=== PATIENT | male | born 1970 | race Caucasian/White ===

== ENCOUNTER → 2017-01-21 | Outpatient (CLI) | payer OTHER ==
[~2017-01-21] MED LIST: DIAZEPAM5 MG PO; DIVALPROEX SOD500 M1 PO; EPZICOM1 TABLET PO; INTELENCE200 MG PO; LACTULOSE10 GM/151 PO; MONTELUKAST SOD10 MG PO; OXYCODONE HCL5 MG PO
== END | disposition home or self-care (01) ==
DX: R26.2 Difficulty in walking, not elsewhere classified (principal); M25.551 Pain in right hip; M25.651 Stiffness of right hip, not elsewhere classified; M62.81 Muscle weakness (generalized)
CPT/HCPCS: 97110 GP; 97150 GO; 97161 GP; 97165 GO

== ENCOUNTER 2017-02-04 05:44 | Inpatient (IN) | payer OTHER ==
[~2017-02-04] VITALS: Ht 165.1 cm; Wt 53.8 kg
[~2017-02-04 05:44] MED LIST changes: +BUSPAR7.5 MG PO; +COMBIVENT RESPIM4 GM IH; +DEPAKOTE ER500 MG PO; +HYDROCODON-ACE1 EAC8 PO; +MARINOL5 MG PO; +NEURONTIN300 MG PO; +PROVENTIL HFA6.7 GM IH; +SINGULAIR10 MG PO; +STRIBILD TABLE1 EACH PO; +TRAZODONE HCL50 MG PO
[2017-02-04 07:16] VITALS: BP 116/82
[2017-02-04] MEDS ORDERED: VISTARIL25 MG PO (09:37)
[2017-02-04] MEDS ORDERED: COUMADIN2.5 MG PO (09:37)
[2017-02-04 11:48] LABS: HEMATOCRIT 42.6 % (38.0-50.0); MCV 100.5 FL (86-99)
[2017-02-04 12:25] VITALS: BP 113/73
[2017-02-04 12:53] LABS: PROTHROMBIN TIME 10.6 (9.2-11.2)
[2017-02-04 15:56] VITALS: BP 144/83
[2017-02-04 20:21] VITALS: BP 128/88
[2017-02-05 00:20] VITALS: BP 138/84
[2017-02-05 04:15] VITALS: BP 134/82
[2017-02-05 06:03] LABS: HEMATOCRIT 38.7 % (38.0-50.0); MCV 98.5 FL (86-99)
[2017-02-05 06:10] LABS: INTER. NORMALIZED RATIO 1.1; PROTHROMBIN TIME 11.4 (9.2-11.2)
[2017-02-05 06:17] LABS: ANION GAP 9 MEQ/L (2-14); CHLORIDE 106 MEQ/L (99-109); GFR ESTIMATE (CALCULATED) > 59 mL/min/; GLUCOSE 124 mg/dL (70-99); POTASSIUM 4.1 MEQ/L (3.7-5.4); SAMPLE HEMOLYSIS CHECK 0; SAMPLE ICTERIC CHECK 0; SAMPLE LIPEMIA CHECK 0; SODIUM 136 MEQ/L (136-147); UREA NITROGEN (BUN) 7 mg/dL (9-23)
[2017-02-05 08:00] VITALS: BP 124/80
[2017-02-05 12:13] VITALS: BP 111/71
[2017-02-05 16:05] VITALS: BP 110/70
[2017-02-05 20:01] VITALS: BP 114/76
[2017-02-06 00:30] VITALS: BP 110/71
[2017-02-06 04:30] VITALS: BP 116/70
[2017-02-06 05:10] LABS: INTER. NORMALIZED RATIO 3.5; PROTHROMBIN TIME 36.8 (9.2-11.2)
[2017-02-06 08:02] VITALS: BP 108/69
[2017-02-06] MEDS ORDERED: OXYCONTIN10 MG PO (11:38)
[2017-02-06] MEDS ORDERED: PERCOCET 10/1 TABLET PO (11:38)
[2017-02-06] MEDS ORDERED: COUMADIN1 MG PO ×2 (11:41→11:42)
[2017-02-06] MEDS ORDERED: HYDROXYZINE PAM25 MG PO (11:46)
[2017-02-06 12:26] VITALS: BP 117/78
[2017-02-06 15:27] VITALS: BP 109/70
== END 2017-02-06 16:05 | disposition home health service (06) | DRG 470 ==
LOC: 2SOUTH → 3WEST 05:44 → 2SOUTH 08:55 → 3WEST 12:05 → 2SOUTH 12:41 → 3WEST 02-06 16:05
PROVIDERS: Orthopaedic Surgery
PROC: 0SR902A Replacement of Right Hip Joint with Metal on Polyethylene Synthetic Substitute, Uncemented, Open Approach (ICD-10-PCS; principal; 2017-02-04)
DX: M16.11 Unilateral primary osteoarthritis, right hip (principal); G40.909 Epilepsy, unspecified, not intractable, without status epilepticus; Z21 Asymptomatic human immunodeficiency virus [HIV] infection status; G89.29 Other chronic pain; F41.9 Anxiety disorder, unspecified; F32.9 Major depressive disorder, single episode, unspecified; J45.909 Unspecified asthma, uncomplicated; M81.0 Age-related osteoporosis without current pathological fracture; F17.200 Nicotine dependence, unspecified, uncomplicated; Z79.891 Long term (current) use of opiate analgesic; Z88.0 Allergy status to penicillin
CPT/HCPCS: 80048; 85014; 85018; 85610; 86850; 86900; 86901; 97530 GP; 99202; J0690; J1170; J2250; J7050; J7120; Q0167

== ENCOUNTER 2018-03-31 12:21 | Inpatient (IN) | payer OTHER ==
[~2018-03-31] VITALS: Ht 165.1 cm; Wt 57.3 kg
[~2018-03-31 12:21] MED LIST changes: +COUMADIN1 MG PO; +COUMADIN2.5 MG PO; +HYDROXYZINE PAM25 MG PO; +OXYCONTIN10 MG PO; +PERCOCET 10/1 TABLET PO; +VISTARIL25 MG PO
[2018-03-31 12:50] LABS: BASOPHIL (%) 0.6 % (0-1); BASOPHIL COUNT 0.1 K/uL (0-0.1); EOSINOPHIL (%) 0.9 % (0-5); EOSINOPHIL COUNT 0.1 K/uL (0-0.3); HEMATOCRIT 41.6 % (38.0-50.0); IMMATURE GRANULOCYTE (%) 0.5 % (0.0-0.7); LYMPHOCYTE COUNT 2.2 K/uL (1.0-2.8); MCH 34.7 PG (29.0-34.0); MCHC 33.7 G/DL (30.0-36.0); MONOCYTE (%) 6.3 % (3-12); MONOCYTE COUNT 0.8 K/uL (0-0.8); NEUTROPHIL (%) 73.7 % (45-76); NEUTROPHIL COUNT 8.8 K/uL (1.8-6.4); PLATELET COUNT 239 K/uL (156-360); RBC DIS.WIDTH-CV 13.2 % (11.8-14.6); RBC DIS.WIDTH-SD 50.8 % (39-53); RED BLOOD COUNT 4.04 M/uL (4.00-5.50)
[2018-03-31 12:57] LABS: INTER. NORMALIZED RATIO 0.9
[2018-03-31 12:59] LABS: ALBUMIN 3.6 g/dL (3.2-4.8); CHLORIDE 111 mEq/L (99-109); POTASSIUM 4.6 mEq/L (3.7-5.4); SODIUM 139 mEq/L (136-147)
[2018-03-31 12:59] LABS: PTT 27.8 SEC (25-37)
[2018-03-31 13:02] LABS: GLUCOSE 122 mg/dL (70-99); TOTAL PROTEIN 5.9 g/dL (6.4-8.3)
[2018-03-31 13:04] LABS: TOTAL BILIRUBIN 0.2 mg/dL (0.0-1.0)
[2018-03-31 13:05] LABS: ALKALINE PHOSPHATASE 278 IU/L (3-129); CREATININE 1.4 mg/dL (0.6-1.3); GFR ESTIMATE (CALCULATED) 58 mL/min/ (58.99-99999)
[2018-03-31 13:06] LABS: UREA NITROGEN (BUN) 13 mg/dL (9-23)
[2018-03-31 13:07] LABS: AST (GOT) 15 IU/L (2-34)
[2018-03-31 13:08] LABS: ALT (GPT) 11 IU/L (3-49)
[2018-03-31] MEDS ORDERED: BACTRIM,SEPT1 TABLET PO (16:48)
[2018-03-31] MEDS ORDERED: DRONABINOL10 MG PO (16:49)
[2018-03-31] MEDS ORDERED: NEURONTIN600 MG PO ×2 (16:50)
[2018-03-31] MEDS ORDERED: ALEVE220 MG PO (16:51)
[2018-03-31] MEDS ORDERED: VITAMIN B122500 MCG PO (16:51)
[2018-03-31] MEDS ORDERED: CLOTRIMAZOLE15 GM TP (16:54)
[2018-03-31 20:00] VITALS: BP 110/74
[2018-03-31 20:10] VITALS: BP 110/74
[2018-03-31 23:23] VITALS: BP 115/69
[2018-04-01 03:59] VITALS: BP 100/66
[2018-04-01 08:43] VITALS: BP 102/56
[2018-04-01 16:06] VITALS: BP 111/62
[2018-04-01 19:22] VITALS: BP 119/70
[2018-04-02 00:46] VITALS: BP 120/73
[2018-04-02 04:25] VITALS: BP 111/63
[2018-04-02 05:58] LABS: HEMATOCRIT 34.1 % (38.0-50.0); HEMOGLOBIN 11.2 G/DL (12.5-16.6)
[2018-04-02 07:22] VITALS: BP 101/64
[2018-04-02 07:49] LABS: CHLORIDE 108 MEQ/L (99-109); CREATININE 1.2 MG/DL (0.6-1.3); GFR ESTIMATE (CALCULATED) > 59 mL/min/ (58.99-99999); GLUCOSE 150 mg/dL (70-99); POTASSIUM 3.7 MEQ/L (3.7-5.4); SODIUM 134 MEQ/L (136-147); UREA NITROGEN (BUN) 10 mg/dL (9-23)
[2018-04-02 11:13] VITALS: BP 108/69
[2018-04-02 16:05] VITALS: BP 110/72
[2018-04-02 23:11] VITALS: BP 117/67
[2018-04-03 06:36] LABS: HEMATOCRIT 29.1 % (38.0-50.0); HEMOGLOBIN 9.5 G/DL (12.5-16.6); MCV 104.3 FL (86-99)
[2018-04-03 07:39] VITALS: BP 102/57
[2018-04-03 16:01] VITALS: BP 112/69
[2018-04-04 00:07] VITALS: BP 98/53
[2018-04-04 06:28] LABS: HEMATOCRIT 28.9 % (38.0-50.0); HEMOGLOBIN 9.4 G/DL (12.5-16.6); MCH 33.9 PG (29.0-34.0); MCHC 32.5 G/DL (30.0-36.0); MCV 104.3 FL (86-99); PLATELET COUNT 226 K/uL (156-360); RBC DIS.WIDTH-CV 13.1 % (11.8-14.6); RBC DIS.WIDTH-SD 50.5 % (39-53); WHITE BLOOD COUNT 5.6 K/uL (4.1-10.2)
[2018-04-04 06:33] LABS: RED BLOOD COUNT 2.77 M/uL (4.00-5.50)
[2018-04-04 08:05] VITALS: BP 115/69
[2018-04-04] MEDS ORDERED: ENDOCET 5-3251 EACH PO (13:05)
[2018-04-04 15:17] VITALS: BP 100/59
== END 2018-04-04 16:45 | disposition home health service (06) | DRG 492 ==
LOC: EME 12:21 → 3EAST 17:03 → EDOF 17:03 → ENRESERV 17:21 → 3EAST 19:18
PROVIDERS: Emergency Medicine; Family Medicine; Internal Medicine; Orthopaedic Surgery
PROC: 0QSG06Z Reposition Right Tibia with Intramedullary Internal Fixation Device, Open Approach (ICD-10-PCS; principal; 2018-04-01)
DX: S89.001A Unspecified physeal fracture of upper end of right tibia, initial encounter for closed fracture (principal); S89.201A Unspecified physeal fracture of upper end of right fibula, initial encounter for closed fracture; W01.0XXA Fall on same level from slipping, tripping and stumbling without subsequent striking against object, initial encounter; B20 Human immunodeficiency virus [HIV] disease; R64 Cachexia; Z68.21 Body mass index [BMI] 21.0-21.9, adult; G40.909 Epilepsy, unspecified, not intractable, without status epilepticus; M47.816 Spondylosis without myelopathy or radiculopathy, lumbar region; M48.061 Spinal stenosis, lumbar region without neurogenic claudication; G62.9 Polyneuropathy, unspecified; G89.29 Other chronic pain; J45.909 Unspecified asthma, uncomplicated; M06.9 Rheumatoid arthritis, unspecified; M79.7 Fibromyalgia; M81.8 Other osteoporosis without current pathological fracture; F41.9 Anxiety disorder, unspecified; F17.210 Nicotine dependence, cigarettes, uncomplicated; Z96.641 Presence of right artificial hip joint
CPT/HCPCS: 72131; 73501; 73590; 73600; 73630; 76000; 80048; 80053; 82607; 85014; 85018; 85025; 85027; 85610; 85730; 86850; 86900; 86901; 93005; 97530 GP; 99202; 99281; 99285; C1713; J0330; J1170; J2405; J3010; J7030; Q0167